=== PATIENT | male | born 1990 | race Caucasian/White ===

== ENCOUNTER 2021-11-16 08:56 | Emergency (ER) | payer OTHER ==
[2021-11-16] MEDS ORDERED: ONDANSETRON ODT 4 MG TAB PO STA (09:17)
[2021-11-16] MEDS ORDERED: IBUPROFEN 600 MG TAB PO STA (10:09)
--- NOTE | 2021-11-16 10:20 | ED ---
General Adult HPI - General Chief complaint: Nausea/Vomiting/Diarrhea Stated complaint: nausea Time Seen by Provider: 11/16/21 09:00 Source: patient Mode of arrival: ambulatory Limitations: no limitations - History of Present Illness Initial comments: 31-year-old previously healthy male presents to emergency room with reported nausea since Tuesday. Denies any sick contacts with similar symptoms. No exposure to tainted foods. Reports that he is able to eat and drink however with ambulation he feels nauseated. No associated vomiting. Denies abdominal pain. Admits to chills without recorded fevers. Patient is not vaccinated against Covid. Admits nasal congestion with nonproductive cough. No chest pain. No shortness of breath. Denies diarrhea or issues with his urination. Admits that he had similar symptoms last year and was hospitalized at [facility] for 2 days. He had EGD and colonoscopy performed. States he was on Bentyl for a period of time and this medication improved his symptoms. He denies any pertinent findings with his hospitalization. No other alleviating, precipitating or modifying factors - Related Data Previous Rx's Medication Instructions Recorded Ondansetron Odt [Zofran Odt] 4 mg PO Q8HR PRN #20 tab 11/16/21 Allergies Allergy/AdvReac Type Severity Reaction Status Date / Time No Known Allergies Allergy Verified 11/16/21 09:33 Review of Systems ROS Statement: Those systems with pertinent positive or pertinent negative responses have been documented in the HPI. ROS Other: All systems not noted in ROS Statement are negative. Past Medical History Past Medical History: No Reported History History of Any Multi-Drug Resistant Organisms: None Reported Past Surgical History: No Surgical Hx Reported Smoking Status: Never smoker Past Alcohol Use History: Occasional Past Drug Use History: None Reported General Exam Limitations: no limitations General appearance: alert, in no apparent distress, other (fatigued) Head exam: Present: atraumatic, normocephalic, normal inspection Eye exam: Present: normal appearance, PERRL, EOMI. Absent: scleral icterus, conjunctival injection, periorbital swelling ENT exam: Present: normal exam, mucous membranes moist Neck exam: Present: normal inspection. Absent: tenderness, meningismus, lymphadenopathy Respiratory exam: Present: normal lung sounds bilaterally. Absent: respiratory distress, wheezes, rales, rhonchi, stridor Cardiovascular Exam: Present: regular rate, normal rhythm, normal heart sounds. Absent: systolic murmur, diastolic murmur, rubs, gallop, clicks GI/Abdominal exam: Present: soft, normal bowel sounds. Absent: distended, tenderness, guarding, rebound, rigid Extremities exam: Present: normal inspection, full ROM, normal capillary refill. Absent: tenderness, pedal edema, joint swelling, calf tenderness Back exam: Present: normal inspection Neurological exam: Present: alert, oriented X3, CN II-XII intact Psychiatric exam: Present: normal affect, normal mood Skin exam: Present: warm, intact, diaphoretic. Absent: rash Course Vital Signs 11/16/21 08:58 Temperature 98 F Pulse Rate 89 Respiratory 20 Rate Blood Pressure 135/93 O2 Sat by Pulse 20 L Oximetry Medical Decision Making - Medical Decision Making Upon arrival patient was placed into room 2. Thorough history and physical exam is performed. I did recommend IV establishment with fluid hydration and laboratory studies however patient refused. He is made aware of the risks of not performing laboratory studies for which she is understanding but continues to refuse. I did recommend Covid and flu swabs for which the patient is agreeable to. He is given oral Zofran for his nausea. Abdomen is nontender. Covid does return and is positive. Discuss the diagnosis with the patient. He is able to drink fluids and hold them down. Reports improvement in his nausea. Informed him that he must quarantine for at least 5 days. Follow-up with his primary care doctor. Take the Zofran as needed every 8 hours for nausea. Take Motrin and Tylenol alternating for pain and fever and return for any new or worsening symptoms. Patient agreeable to plan and was discharged home in stable condition - Lab Data Lab Results 11/16/21 11/16/21 Range/Units 09:27 09:27 Coronavirus (PCR) Detected A (Not Detectd) Influenza Type A RNA Not Detected (Not Detectd) Influenza Type B (PCR) Not Detected (Not Detectd) Disposition Clinical Impression: Nausea, COVID-19 Disposition: HOME SELF-CARE Condition: Stable Instructions (If sedation given, give patient instructions): COVID-19 (Coronavirus Disease 2019) (ED) Additional Instructions: Please take Motrin alternating with Tylenol for pain and fever every 4 hours. Take the Zofran as needed for nausea. Quarantine for at least 5 days. Return to the emergency room for any new or worsening symptoms Prescriptions: Ondansetron Odt [Zofran Odt] 4 mg PO Q8HR PRN #20 tab PRN Reason: Nausea Is patient prescribed a controlled substance at d/c from ED?: No Referrals: Maricel Cole DO [Primary Care Provider] - 1-2 days Time of Disposition: 10:20
[2021-11-16 10:34] VITALS: BP 124/86; PULSE 63; RESP 18; TEMP 98
== END 2021-11-16 10:30 | disposition home or self-care (01) ==
LOC: EC 08:56
DX: U07.1 COVID-19 (principal); Z72.89 Other problems related to lifestyle
CPT/HCPCS: 87502; 87635; 99283

== ENCOUNTER 2022-01-29 15:55 | Inpatient (IN) | payer OTHER ==
[2022-01-29 17:19] LABS: Appearance,Urine Clear (Clear); Bilirubin,Urine Negative (Negative); Blood,Urine Negative (Negative); Color,Urine Yellow; Glucose,Urine (UA) Negative (Negative); Ketones,Urine Negative (Negative); Leukocyte Esterase,Urine Negative (Negative); Nitrite,Urine Negative (Negative); PH, Urine 5.5 (5.0-8.0); Protein,Urine Negative (Negative); Specific Gravity,Urine 1.009 (1.001-1.035)
[2022-01-29 17:28] LABS: Amphetamine Screen,Urine Not Detected (NotDetected); Barbiturate Screen,Urine Not Detected (NotDetected); Benzodiazepines Screen,Urine Not Detected (NotDetected); Cocaine Screen,Urine Not Detected (NotDetected); Methadone Screen, Urine Not Detected (NotDetected); Opiate Screen,Urine Not Detected (NotDetected); Oxycodone Screen, Urine Not Detected (NotDetected); Phencyclidine Screen,Urine Not Detected (NotDetected); Tricyclic Antidepressant,Urine Not Detected (NotDetected); Urn Cannabinoid Scrn Not Detected (NotDetected)
[2022-01-29 17:36] LABS: Basophils % (A) 0 %; Eosinophils # (A) 0.1 k/uL (0-0.7); Eosinophils % (A) 2 %; HCT 42.3 % (39.0-53.0); HGB 15.1 gm/dL (13.0-17.5); Lymphocytes # (A) 1.1 k/uL (1.0-4.8); Lymphocytes % (A) 19 %; MCH 32.1 pg (25.0-35.0); MCHC 35.8 g/dL (31.0-37.0); MCV 89.8 fL (80.0-100.0); Monocytes # (A) 0.3 k/uL (0-1.0); Monocytes % (A) 5 %; Neutrophils # (A) 4.3 k/uL (1.3-7.7); Neutrophils % (A) 73 %; RBC 4.71 m/uL (4.30-5.90); RDW 11.9 % (11.5-15.5)
[2022-01-29 17:48] LABS: ALT 591 U/L (4-49); AST 432 U/L (17-59); African American GFR (CKD) >90 (>60 ml/min/1.73 sqM); Albumin 5.5 g/dL (3.5-5.0); Alkaline Phosphatase 102 U/L (38-126); Anion Gap 22 mmol/L; Blood Urea Nitrogen 8 mg/dL (9-20); Calcium 9.8 mg/dL (8.4-10.2); Carbon Dioxide 19 mmol/L (22-30); Chloride 98 mmol/L (98-107); Glucose 102 mg/dL (74-99); Lipase 171 U/L (23-300); Non-African American GFR(CKD) >90 (>60 ml/min/1.73 sqM); Potassium 3.1 mmol/L (3.5-5.1); Sodium 139 mmol/L (137-145); Total Bilirubin 1.7 mg/dL (0.2-1.3); Total Protein 8.4 g/dL (6.3-8.2)
[2022-01-29] MEDS ORDERED: LORazepam 2 MG/ML INJ IV STA (18:17)
[2022-01-29 18:18] LABS: Platelet Count 79 k/uL (150-450); RBC Morphology Normal
[2022-01-29] MEDS ORDERED: POTASSIUM CHLORIDE ER 20 MEQ TAB.ER PO STA (19:27)
--- NOTE | 2022-01-29 19:45 | CT ---
EXAMINATION TYPE: CT abdomen pelvis wo con DATE OF EXAM: 01/29/2022 COMPARISON: HISTORY: abdominal pain, dark stools CT DLP: 353.3 mGycm Automated exposure control for dose reduction was used. Images obtained from the diaphragm to the floor the pelvis with no contrast. Lung bases are clear. No pleural effusion. Heart size is normal. No pericardial effusion. There is fatty infiltration of the liver. No focal liver defect. Gallbladder is large and measures 4. 3 cm. The bowel is nondilated. Spleen and stomach pancreas appear intact. There is no adrenal mass. Kidneys show satisfactory contrast opacification. No hydronephrosis. Ureter s are not dilated. No retroperitoneal adenopathy. The bladder distends smoothly. No free fluid in the pelvis. No pelvic mass. There is no mesenteric edema. No ascites or free air. No sign of a bowel obstruction. Appendix not cl early seen. No sign of thickened appendix. The lumbar vertebrae have normal alignment. Disc spaces are normal. Posterior elements are intact and no compression fracture. The bony pelvis is intact. IMPRESSION: Fatty infiltration of the liver. No dilated ducts. Appendix not seen.
[2022-01-29] MEDS ORDERED: NALOXONE 0.4 MG/ML 1 ML VIAL IV PRN (20:22)
--- NOTE | 2022-01-29 20:22 | ED ---
Psych HPI - General Chief Complaint: Psychiatric Symptoms Stated Complaint: ABD pain Time Seen by Provider: 01/29/22 16:15 Source: patient Mode of arrival: ambulatory - History of Present Illness Initial Comments: 31-year-old male is brought in for mental health evaluation. He was petitioned by his fiance who states that he has been acting abnormally. States that he is hallucinating and paranoid. Upon interacting with the patient. He denies any suicidal or homicidal thoughts. Reports that he has been suffering from lower abdominal pain the past several weeks. He was seen at a hospital in the [place] and states that he had an ultrasound performed which was negative. He followed up with Dr. Cole and had a repeat laboratory studies performed which were within normal limits. States he continues to have lower abdominal pain and dark urine. Patient is visibly intoxicated. Admits to drinking a pint of vodka today because of the pain. States he normally drinks 1-2 beers daily. Denies bloody stools but admits that they are dark in nature. No history of ulcers. No other alleviating, precipitating or modifying factors - Related Data Home Medications Medication Instructions Recorded Confirmed No Known Home Medications 01/29/22 01/29/22 Allergies Allergy/AdvReac Type Severity Reaction Status Date / Time No Known Allergies Allergy Verified 01/29/22 18:07 Review of Systems ROS Statement: Those systems with pertinent positive or pertinent negative responses have been documented in the HPI. ROS Other: All systems not noted in ROS Statement are negative. Past Medical History Past Medical History: No Reported History History of Any Multi-Drug Resistant Organisms: None Reported Past Surgical History: No Surgical Hx Reported Past Psychological History: No Psychological Hx Reported Smoking Status: Never smoker Past Alcohol Use History: Occasional Past Drug Use History: None Reported General Exam Limitations: altered mental status General appearance: appears intoxicated, anxious Head exam: Present: atraumatic, normocephalic, normal inspection Eye exam: Present: normal appearance, PERRL, EOMI. Absent: scleral icterus, conjunctival injection, periorbital swelling ENT exam: Present: normal exam, mucous membranes moist Respiratory exam: Present: normal lung sounds bilaterally. Absent: respiratory distress, wheezes, rales, rhonchi, stridor Cardiovascular Exam: Present: normal rhythm, tachycardia GI/Abdominal exam: Present: tenderness (suprapubic) Neurological exam: Present: altered Psychiatric exam: Present: agitated Skin exam: Present: warm, dry, intact, normal color. Absent: rash Course Vital Signs 01/29/22 01/29/22 01/29/22 16:12 17:30 20:30 Temperature 98.6 F Pulse Rate 102 H 94 92 Respiratory 20 20 20 Rate Blood Pressure 133/88 128/80 O2 Sat by Pulse 99 98 98 Oximetry 01/29/22 01/29/22 21:30 23:40 Temperature 98.2 F Pulse Rate 92 Respiratory 20 20 Rate Blood Pressure 130/78 O2 Sat by Pulse 98 99 Oximetry Medical Decision Making - Medical Decision Making Upon arrival patient is placed in room 13. Thorough history and physical exam was performed. Patient is aggressive with staff and therefore IV is established and the patient is given 2 mg of Ativan. Laboratory studies are conducted. Potassium low at 3.1. AST and ALT is elevated. Patient sent for CT of his abdomen and pelvis which demonstrates heterogeneous appearance of the liver. Pt has no epigastric pain. Patient is intoxicated with an alcohol level of 206. Because of his alcohol intoxication and liver failure he will be admitted to medicine and then psychiatrically evaluated once cleared as he does have a petition on the chart. Spoke with Josie from [facility] who agreed to admit the patient. - Lab Data Result diagrams: 01/29/22 17:23 01/29/22 17:23 Lab Results 01/29/22 01/29/22 01/29/22 Range/Units 17:05 17:08 17:23 WBC 6.0 (3.8-10.6) k/uL RBC 4.71 (4.30-5.90) m/uL Hgb 15.1 (13.0-17.5) gm/dL Hct 42.3 (39.0-53.0) % MCV 89.8 (80.0-100.0) fL MCH 32.1 (25.0-35.0) pg MCHC 35.8 (31.0-37.0) g/dL RDW 11.9 (11.5-15.5) % Plt Count 79 L (150-450) k/uL MPV 9.0 Neutrophils % 73 % Lymphocytes % 19 % Monocytes % 5 % Eosinophils % 2 % Basophils % 0 % Neutrophils # 4.3 (1.3-7.7) k/uL Lymphocytes # 1.1 (1.0-4.8) k/uL Monocytes # 0.3 (0-1.0) k/uL Eosinophils # 0.1 (0-0.7) k/uL Basophils # 0.0 (0-0.2) k/uL Manual Slide Review Performed RBC Morphology Normal Sodium (137-145) mmol/L Potassium (3.5-5.1) mmol/L Chloride (98-107) mmol/L Carbon Dioxide (22-30) mmol/L Anion Gap mmol/L BUN (9-20) mg/dL Creatinine (0.66-1.25) mg/dL Est GFR (CKD-EPI)AfAm (>60 ml/min/1.73 sqM) Est GFR (CKD-EPI)NonAf (>60 ml/min/1.73 sqM) Glucose (74-99) mg/dL Calcium (8.4-10.2) mg/dL Total Bilirubin (0.2-1.3) mg/dL AST (17-59) U/L ALT (4-49) U/L Alkaline Phosphatase (38-126) U/L Total Protein (6.3-8.2) g/dL Albumin (3.5-5.0) g/dL Lipase (23-300) U/L Urine Color Yellow Urine Appearance Clear (Clear) Urine pH 5.5 (5.0-8.0) Ur Specific [place] 1.009 (1.001-1.035) Urine Protein Negative (Negative) Urine Glucose (UA) Negative (Negative) Urine Ketones Negative (Negative) Urine Blood Negative (Negative) Urine Nitrite Negative (Negative) Urine Bilirubin Negative (Negative) Urine Urobilinogen 2.0 (<2.0) mg/dL Ur Leukocyte Esterase Negative (Negative) Urine Opiates Screen Not Detected (NotDetected) Ur Oxycodone Screen Not Detected (NotDetected) Urine Methadone Screen Not Detected (NotDetected) Ur Propoxyphene Screen Not Detected (NotDetected) Ur Barbiturates Screen Not Detected (NotDetected) U Tricyclic Antidepress Not Detected (NotDetected) Ur Phencyclidine Scrn Not Detected (NotDetected) Ur Amphetamines Screen Not Detected (NotDetected) U Methamphetamines Scrn Not Detected (NotDetected) U Benzodiazepines Scrn Not Detected (NotDetected) Urine Cocaine Screen Not Detected (NotDetected) U Marijuana (THC) Screen Not Detected (NotDetected) 01/29/22 Range/Units 17:23 WBC (3.8-10.6) k/uL RBC (4.30-5.90) m/uL Hgb (13.0-17.5) gm/dL Hct (39.0-53.0) % MCV (80.0-100.0) fL MCH (25.0-35.0) pg MCHC (31.0-37.0) g/dL RDW (11.5-15.5) % Plt Count (150-450) k/uL MPV Neutrophils % % Lymphocytes % % Monocytes % % Eosinophils % % Basophils % % Neutrophils # (1.3-7.7) k/uL Lymphocytes # (1.0-4.8) k/uL Monocytes # (0-1.0) k/uL Eosinophils # (0-0.7) k/uL Basophils # (0-0.2) k/uL Manual Slide Review RBC Morphology Sodium 139 (137-145) mmol/L Potassium 3.1 L (3.5-5.1) mmol/L Chloride 98 (98-107) mmol/L Carbon Dioxide 19 L (22-30) mmol/L Anion Gap 22 mmol/L BUN 8 L (9-20) mg/dL Creatinine 0.76 (0.66-1.25) mg/dL Est GFR (CKD-EPI)AfAm >90 (>60 ml/min/1.73 sqM) Est GFR (CKD-EPI)NonAf >90 (>60 ml/min/1.73 sqM) Glucose 102 H (74-99) mg/dL Calcium 9.8 (8.4-10.2) mg/dL Total Bilirubin 1.7 H (0.2-1.3) mg/dL AST 432 H (17-59) U/L ALT 591 H (4-49) U/L Alkaline Phosphatase 102 (38-126) U/L Total Protein 8.4 H (6.3-8.2) g/dL Albumin 5.5 H (3.5-5.0) g/dL Lipase 171 (23-300) U/L Urine Color Urine Appearance (Clear) Urine pH (5.0-8.0) Ur Specific [place] (1.001-1.035) Urine Protein (Negative) Urine Glucose (UA) (Negative) Urine Ketones (Negative) Urine Blood (Negative) Urine Nitrite (Negative) Urine Bilirubin (Negative) Urine Urobilinogen (<2.0) mg/dL Ur Leukocyte Esterase (Negative) Urine Opiates Screen (NotDetected) Ur Oxycodone Screen (NotDetected) Urine Methadone Screen (NotDetected) Ur Propoxyphene Screen (NotDetected) Ur Barbiturates Screen (NotDetected) U Tricyclic Antidepress (NotDetected) Ur Phencyclidine Scrn (NotDetected) Ur Amphetamines Screen (NotDetected) U Methamphetamines Scrn (NotDetected) U Benzodiazepines Scrn (NotDetected) Urine Cocaine Screen (NotDetected) U Marijuana (THC) Screen (NotDetected) Disposition Clinical Impression: Acute psychosis, Alcohol intoxication, Transaminitis Disposition: ADMITTED IP TO THIS [facility] Condition: Stable Is patient prescribed a controlled substance at d/c from ED?: No Time of Disposition: 20:22 Decision to Admit Reason: Admit from EC Decision Date: 01/29/22 Decision Time: 20:22
[2022-01-29] MEDS ORDERED: LORazepam 0.5 MG TAB PO PRN (20:26)
[2022-01-29] MEDS ORDERED: THIAMINE 100 MG/ML 2 ML VIAL IM STA (20:26)
[2022-01-29] MEDS ORDERED: LORazepam 1 MG TAB PO PRN ×3 (20:26)
[2022-01-29] MEDS: SODIUM CHLORIDE 0.9% 1,000 ML IV SCH (21:09)
[2022-01-30] MEDS: THIAMINE 100 MG TAB PO SCH (09:12)
[2022-01-30 13:01] LABS: Albumin 4.5 g/dL (3.8-4.9); Albumin/Globulin Ratio 2.14 (1.60-3.17); Anion Gap 10.4 mmol/L (10.00-18.00); BUN/Creat Ratio 13.13 Ratio (12.00-20.00); Blood Urea Nitrogen 10.5 mg/dL (9.0-27.0); Calcium 9.1 mg/dL (8.7-10.3); Carbon Dioxide 26.6 mmol/L (20.0-27.5); Globulin 2.1 g/dL (1.6-3.3); Non-African American GFR(CKD) 118.2 (60.0-200.0); Potassium 3.8 mmol/L (3.5-5.5); Total Bilirubin 1.7 mg/dL (0.30-1.20); Total Protein 6.6 g/dL (6.2-8.2)
[2022-01-30 13:36] LABS: Basophils # (A) 0.02 X 10*3/uL (0.00-0.10); Basophils % (A) 0.4 %; Eosinophils # (A) 0.17 X 10*3/uL (0.04-0.35); Eosinophils % (A) 3.1 %; HCT 37.4 % (39.6-50.0); HGB 12.9 g/dL (13.0-17.0); Immature Grans, Automated 0.4 %; Immature Platelet Fraction 9.5 % (1.1-6.1); Lymphocytes # (A) 1.51 X 10*3/uL (0.90-5.00); Lymphocytes % (A) 27.2 %; MCH 31.2 pg (27.0-32.0); MCHC 34.5 g/dL (32.0-37.0); MCV 90.6 fL (80.0-97.0); Mean Platelet Volume 11.4 fL (9.5-12.2); Monocytes # (A) 0.47 X 10*3/uL (0.20-1.00); Monocytes % (A) 8.5 %; NRBC Per 100 WBC 0 /100 WBCS (0.0-0.0); Neutrophils # (A) 3.36 X 10*3/uL (1.80-7.70); Neutrophils % (A) 60.4 %; Platelet Count 69 X 10*3/uL (140-440); RBC 4.13 X 10*6/uL (4.40-5.60); RDW 11.9 % (11.5-14.5); WBC 5.55 X 10*3/uL (4.50-10.00)
--- NOTE | 2022-01-30 14:48 | P.CN ---
Psychiatric Consult - . Consult date: 01/30/22 Consult:: IDENTIFYING DATA: This patient is a 31-year old engaged male with history of depression and alcohol use disorder. REASON FOR REFERRAL: Psychiatry was consulted for "petition" HISTORY OF PRESENT ILLNESS: The patient presented to the hospital for a mental health evaluation by his fiancee who petitioned him, and was subsequently admission to the medical unit due to abdominal pain and transaminitis. I evaluated patient today and found him calmly laying in bed cuddling his fiance with a sitter at bedside. The fiancee voluntarily left the room during the evaluation. He admits he has felt depressed since his mother 4 years ago and started drinking after her . He reports he started drinking 2-3 beers per night, then switched to vodka which he would consume about half a pint per night. He states he "quit" about one week ago, experienced withdrawal symptoms including shaking, sweating, and was hearing voices (which he had not experienced before), and denies any seizures. He started drinking again the ni ght before admission, got into verbal arguments with his finacee, that lead to his presentation to the hospital. His BAL was .206 at 16:18 on 01/29/22. He is clinically sober currently. At this time, patient denies any suicidal or homical ideations, intent or plan. He denies any auditory or visual hallucinations currently. No paranoia or delusions currently. He admits to poor sleep, low interest, low energy, fair concentration, low appetite. He declines inpatient substance abuse treatment but is interested in outpatient substance abuse treatment. He is also agreeable to starting an antidepressant and linking with [facility] for mental health treatment. He states he wants to discontinue alcohol use. He denies other illicit drug or tobacco use. PAST PSYCHIATRIC HISTORY: Patient has a a history of depression and alcohol abuse. Patient denies being on any psychiatric medications. Patient denies any previous psychiatric hospitalizations. Patient denies any psychiatric outpatient follow-up. Patient denies any history of suicide attempts in the past. PAST MEDICAL HISTORY: Elevated transaminase on admission ALLERGIES: as per EMR. CHEMICAL DEPENDENCY HISTORY: as per HPI. FAMILY PSYCHIATRIC/SUBSTANCE USE HISTORY: denies SOCIAL HISTORY: Mother 4 years ago. Engaged MENTAL STATUS EXAM: General Appearance: Patient appears to be stated age, slender male with fair hygiene dressed in hospital gown, with good eye contact. Behavior: Patient is calmly lying in bed without any agitated behavior. Speech: Patient's speech is fluent and non-pressured. Mood/Affect: Patient reports their mood is "[depressed]", affect is congruent Suicidality/Homicidality: Patient denies having any suicidal or homicidal ideation intent or plan. Perceptions: Patient denies any visual hallucinations and denies any auditory hallucinations Though content/process: There is no evidence of any delusional thought content and thought process is linear and goal-directed. Memory and concentration: AOX3, grossly intact for the purposes of this session. Can spell "WORLD" backwards Judgment and insight: Fair IMPRESSIONS: Major depressive disorder, single episode, severe without psychotic features Delirium, secondary to alcohol withdrawal - resolving Alcohol use disorder with withdrawal PLAN: -At this time patient DOES NOT meet criteria for inpatient psychiatric admission. -Delirium precautions recommended with patient including - avoiding use of narcotics and [employer] sedatives, limit anticholinergic medications when possible, frequent re-orientation, minimize use of restraints, open window shades during the day and close them at night -Would recommend the following medication changes/additions: Start Zoloft 25 mg daily x 1, and increase to 50 mg daily starting tomorrow for depression. -CIWA protocol with PRN Ativan for alcohol withdrawal. Continue to monitor vital signs. -Can discontinue 1:1 sitter at this time as patient is not currently an imminent threat to themselves. Continue to reassess safety and reinstate sitter if safety concerns arise. -icebox worker to provide patient with outpatient mental health/psychiatry resources for appropriate follow up upon discharge, ie information for [facility] so he can make an appointment. -Nurse Leader spoke with patient about substance abuse and the harmful effects on medical and mental health, patient verbally understood and agreed. -icebox worker to provide patient substance use treatment resources including AA/NA meetings in the community. -icebox worker to provide patient with access line number to call for inpatient substance rehab in the event he changes his mind and is willing to do inpatient treatment. -Communicated plan to patient's nurse -Will continue to follow along -Please contact with any questions. 01/30/22 13:05 01/30/22 13:05 01/30/22 14:33
[2022-01-30] MEDS ORDERED: SERTRALINE 25 MG TAB PO ONE (15:00)
[2022-01-30] MEDS: HEPARIN SODIUM,PORCINE/PF 5,000 UNIT/0.5 ML SYRINGE SQ SCH ×2 (15:20→20:02)
[2022-01-30] MEDS: PANTOPRAZOLE 40 MG TABLET PO SCH (15:23)
[2022-01-30] MEDS ORDERED: IBUPROFEN 400 MG TAB PO STA (20:22)
[2022-01-30] MEDS: SODIUM CHLORIDE 0.9% 1,000 ML IV SCH ×2 (21:00→21:01)
[2022-01-31] MEDS: SODIUM CHLORIDE 0.9% 1,000 ML IV SCH (04:28)
[2022-01-31 07:55] VITALS: BP 128/85; PULSE 61; RESP 16; TEMP 97.8
[2022-01-31] MEDS ORDERED: SERTRALINE 50 MG TAB PO SCH (09:00)
[2022-01-31] MEDS: HEPARIN SODIUM,PORCINE/PF 5,000 UNIT/0.5 ML SYRINGE SQ SCH (09:10)
[2022-01-31] MEDS: THIAMINE 100 MG TAB PO SCH (09:26)
[2022-01-31] MEDS: PANTOPRAZOLE 40 MG TABLET PO SCH (09:27)
[2022-01-31 11:45] LABS: Basophils # (A) 0.02 X 10*3/uL (0.00-0.10); Basophils % (A) 0.4 %; Eosinophils # (A) 0.15 X 10*3/uL (0.04-0.35); HCT 32.2 % (39.6-50.0); HGB 11.1 g/dL (13.0-17.0); Immature Grans, Automated 0.2 %; Immature Platelet Fraction 7.9 % (1.1-6.1); Lymphocytes % (A) 28.4 %; MCH 31.7 pg (27.0-32.0); MCHC 34.5 g/dL (32.0-37.0); Monocytes # (A) 0.41 X 10*3/uL (0.20-1.00); Monocytes % (A) 8.3 %; NRBC Per 100 WBC 0 /100 WBCS (0.0-0.0); Neutrophils # (A) 2.94 X 10*3/uL (1.80-7.70); Neutrophils % (A) 59.7 %; Platelet Count 62 X 10*3/uL (140-440); RDW 11.8 % (11.5-14.5); WBC 4.93 X 10*3/uL (4.50-10.00)
[2022-01-31 11:56] LABS: African American GFR (CKD) 144.7 (60.0-200.0); Albumin/Globulin Ratio 2.35 (1.60-3.17); Anion Gap 8.4 mmol/L (10.00-18.00); BUN/Creat Ratio 15.29 Ratio (12.00-20.00); Blood Urea Nitrogen 10.7 mg/dL (9.0-27.0); Calcium 8.9 mg/dL (8.7-10.3); Carbon Dioxide 24.6 mmol/L (20.0-27.5); Globulin 1.7 g/dL (1.6-3.3); Non-African American GFR(CKD) 124.9 (60.0-200.0); Potassium 3.6 mmol/L (3.5-5.5); Total Protein 5.7 g/dL (6.2-8.2)
[2022-01-31] MEDS ORDERED: FOLIC ACID 1 MG TAB PO SCH (12:00)
[2022-01-31] MEDS ORDERED: MULTIVITAMINS, THERA 1 EACH TAB PO SCH (12:00)
== END 2022-01-31 13:28 | disposition home or self-care (01) | DRG 885 ==
LOC: EC 15:55 → 4SSUR 20:23
PROVIDERS: ADMIT Hospitalist; ATTEND Hospitalist
DX: F23 Brief psychotic disorder (principal); F10.129 Alcohol abuse with intoxication, unspecified; K72.90 Hepatic failure, unspecified without coma; Y90.7 Blood alcohol level of 200-239 mg/100 ml; Z71.41 Alcohol abuse counseling and surveillance of alcoholic
CPT/HCPCS: 36415; 74176; 80053; 80306; 80320; 81003; 82075; 83690; 83735; 85025; 96361; 96374; 99285

== ENCOUNTER 2022-12-26 23:47 | Emergency (ER) | payer OTHER ==
[2022-12-27 00:24] VITALS: TEMP 98
[2022-12-27] MEDS ORDERED: HYDROmorphone 1 MG/ML 1 ML SYRINGE IM STA (00:30)
--- NOTE | 2022-12-27 02:23 | XR ---
EXAM: XR Right Femur, 2 Views CLINICAL HISTORY: XR Reason: fall TECHNIQUE: Frontal and lateral views of the right femur. COMPARISON: No relevant prior studies available. FINDINGS: Bones/joints: Fullness in the suprapatellar region consistent with moderate joint effusion. The osseous structures are intact and normally aligned. No acute fracture or dislocation is identified. Soft tissues: Unremarkable. IMPRESSION: 1. Fullness in the suprapatellar region consistent with moderate joint effusion. 2. The osseous structures are intact and normally aligned. No acute fracture or dislocation is identified.
--- NOTE | 2022-12-27 02:24 | XR ---
EXAM: XR Right Knee, 3 Views CLINICAL HISTORY: XR Reason: fall TECHNIQUE: Three views of the right knee. COMPARISON: No relevant prior studies available. FINDINGS: Bones/joints: Fullness in the suprapatellar region consistent with a knee joint effusion. No acute fracture or dislocation is seen. Soft tissues: Unremarkable. IMPRESSION: Fullness in the suprapatellar region consistent with a knee joint effusion. No acute fracture or dislocation is seen.
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
[2022-12-27 03:34] VITALS: BP 118/73; PULSE 58; RESP 16
== END 2022-12-27 03:33 | disposition home or self-care (01) ==
LOC: EC 23:47
DX: M25.461 Effusion, right knee (principal); Z88.5 Allergy status to narcotic agent; Z88.6 Allergy status to analgesic agent; X50.1XXA Overexertion from prolonged static or awkward postures, initial encounter; Y93.55 Activity, bike riding
CPT/HCPCS: 73552; 73562; 99283; 96372; L1830; J1170

== ENCOUNTER 2023-05-24 22:37 | Emergency (ER) | payer OTHER ==
[2023-05-24] MEDS: FLUORESCEIN STRIPS 1 MG STRIP LEFT EYE ONE (22:53)
[2023-05-24] MEDS: PROPARACAINE 0.5% OPHTH DROPS 15 ML BTL LEFT EYE STA (22:53)
[2023-05-24 23:07] VITALS: RESP 18
--- NOTE | 2023-05-24 23:16 | ED ---
General Adult HPI <Zeb Nunn - Last Filed: 05/24/23 23:48> - General Source: patient, RN notes reviewed Mode of arrival: ambulatory Limitations: no limitations <Darlyn Orta - Last Filed: 05/30/23 11:53> - General Chief complaint: Eye Problems Stated complaint: eye problem Time Seen by Provider: 05/24/23 22:48 - History of Present Illness Initial comments: 33-year-old male presented to the emergency department for evaluation of left eye irritation. He states that he believes he got something in his eye. He states the pain started 2 days ago. He was recently working on his vehicle and hammering metal. He is not sure if he got something in his eye at that time. He denies any changes in his vision, pain with eye movements, periorbital swelling. Denies fever, chills. He is not up-to-date on his tetanus vaccination. (Darlyn Orta) - Related Data Previous Rx's Medication Instructions Recorded Folic Acid 1 mg PO DAILY@1200 #30 tab 01/31/22 Multivitamins, Thera [Multivitamin 1 each PO DAILY@1200 #30 tab 01/31/22 (formulary)] Pantoprazole [Protonix] 40 mg PO AC-BRKFST #30 tab 01/31/22 Sertraline [Zoloft] 50 mg PO DAILY #30 tab 01/31/22 Thiamine [Vitamin B-1] 100 mg PO DAILY #30 tab 01/31/22 Allergies Allergy/AdvReac Type Severity Reaction Status Date / Time acetaminophen [From Vicodin] AdvReac Hallucinati Verified 12/27/22 00:21 ons hydrocodone [From Vicodin] AdvReac Hallucinati Verified 12/27/22 00:21 ons Review of Systems ROS Other: All systems not noted in ROS Statement are negative. <Zeb Nunn - Last Filed: 05/24/23 23:48> ROS Other: All systems not noted in ROS Statement are negative. <Darlyn Orta - Last Filed: 05/30/23 11:53> ROS Statement: Those systems with pertinent positive or pertinent negative responses have been documented in the HPI. Past Medical History Past Medical History: No Reported History History of Any Multi-Drug Resistant Organisms: None Reported Past Surgical History: No Surgical Hx Reported Past Psychological History: No Psychological Hx Reported Smoking Status: Never smoker Past Alcohol Use History: Occasional Past Drug Use History: None Reported <Darlyn Orta - Last Filed: 05/30/23 11:53> General Exam Limitations: no limitations General appearance: alert, in no apparent distress Head exam: Present: atraumatic, normocephalic, normal inspection Eye exam: Present: PERRL, EOMI, conjunctival injection, other (Visible corneal foreign body of the left eye with Burgess lamp examination) ENT exam: Present: normal exam, mucous membranes moist Respiratory exam: Present: normal lung sounds bilaterally. Absent: respiratory distress, wheezes, rales, rhonchi, stridor Cardiovascular Exam: Present: regular rate, normal rhythm, normal heart sounds. Absent: systolic murmur, diastolic murmur, rubs, gallop, clicks Neurological exam: Present: alert, oriented X3 Psychiatric exam: Present: normal affect, normal mood Skin exam: Present: warm, dry, intact, normal color. Absent: rash <Darlyn Orta - Last Filed: 05/30/23 11:53> Course Vital Signs 05/24/23 05/25/23 22:40 00:44 Temperature 98.1 F 98.2 F Pulse Rate 56 L 62 Respiratory 18 18 Rate Blood Pressure 131/87 128/80 O2 Sat by Pulse 99 97 Oximetry Procedures - Forgein Body Removal Eye Site: Left Anesthetic Used: Proparacaine Foreign Body Suspected: Metal Forgein Body Removal Technique: Cotton Swab, Needle Remaining Debris: Yes (small rust ring) Patient Tolerated: no complications <Zeb Nunn - Last Filed: 05/24/23 23:48> - Forgein Body Removal Eye Eye Exam Technique: Burgess Lamp, Fluorescein <Darlyn Orta - Last Filed: 05/30/23 11:53> Medical Decision Making <Darlyn Orta - Last Filed: 05/30/23 11:53> - Medical Decision Making Was pt. sent in by a medical professional or institution (, PA, RUN BOAT OPERATOR, urgent care, hospital, or detention...) When possible be specific @ -No Did you speak to anyone other than the patient for history (EMS, parent, family, police, friend...)? What history was obtained from this source @ -No Did you review nursing and triage notes (agree or disagree)? Why? @ -I reviewed and agree with nursing and triage notes Were old charts reviewed (outside hosp., previous admission, EMS record, old EKG, old radiological studies, urgent care reports/EKG's, detention records)? Report findings @ -No old charts were reviewed Differential Diagnosis (chest pain, altered mental status, abdominal pain women, abdominal pain men, vaginal bleeding, weakness, fever, dyspnea, syncope, headache, dizziness, GI bleed, back pain, seizure, CVA, palpatations, mental hea lth, musculoskeletal)? @ -Corneal foreign body, corneal abrasion, conjunctivitis, this list is not all inclusive EKG interpreted by me (3pts min.). @ -None X-rays interpreted by me (1pt min.). @ -None done CT interpreted by me (1pt min.). @ -None done U/S interpreted by me (1pt. min.). @ -None done What testing was considered but not performed or refused? (CT, X-rays, U/S, labs)? Why? @ -None What meds were considered but not given or refused? Why? @ -None Did you discuss the management of the patient with other professionals (professionals i.e. , PA, RUN BOAT OPERATOR, lab, RT, psych nurse, social work lecturer, network architect, teacher, procurement officer, case work aide)? Give summary @ -No Was smoking cessation discussed for >3mins.? @ -No Was critical care preformed (if so, how long)? @ -No Were there social determinants of health that impacted care today? How? (Homelessness, low income, unemployed, alcoholism, drug addiction, transportation, low edu. Level, literacy, decrease access to med. care, senior care, rehab)? @ -No Was there de-escalation of care discussed even if they declined (Discuss DNR or withdrawal of care, Hospice)? DNR status @ -No What co-morbidities impacted this encounter? (DM, HTN, Smoking, COPD, CAD, Cancer, CVA, ARF, Chemo, Hep., AIDS, mental health diagnosis, sleep apnea, morbid obesity)? @ -None Was patient admitted / discharged? Hospital course, mention meds given and route , prescriptions, significant lab abnormalities, going to OR and other pertinent info. @ -Discharge.patient presented to the emergency department for evaluation of left eye pain. This started 2 days ago. He is unsure if he got something in his eye. Visual acuity in the right eye 20/20, visual acuity and left 20/30. On Burgess lamp exam examination, there is a visible foreign body over the cornea of the left eye. Attempted removal with cotton swab. Attempted removal was preformed by Johnnie Dior PA-C with needle. Majority of the foreign body was able to be removed. Discussed with patient that there is still a small area of foreign body that appears to be in the eye. He will need to follow-up with ophthalmology. Provided patient with this information. Given antibiotic eyedrops and advised on use. Patient updated on tetanus vaccination. Patient understanding agreeable plan. Patient stable at time of discharge. Case discussed with Dr. Garcia. Undiagnosed new problem with uncertain prognosis? @ -No Drug Therapy requiring intensive monitoring for toxicity (Heparin, Nitro, Insulin, Cardizem)? @ -No Were any procedures done? @ -No Diagnosis/symptom? @ -Corneal foreign body Acute, or Chronic, or Acute on Chronic? @ -Acute Uncomplicated (without systemic symptoms) or Complicated (systemic symptoms)? @ -Uncomplicated Side effects of treatment? @ -No Exacerbation, Progression, or Severe Exacerbation? @ -No Poses a threat to life or bodily function? How? (Chest pain, [place], [place], pneumonia, PE, COPD, DKA, ARF, appy, cholecystitis, CVA, Diverticulitis, Homicidal, Suicida l, threat to staff... and all critical care pts) @ -No (Darlyn Orta) Disposition <Zeb Nunn - Last Filed: 05/24/23 23:48> Is patient prescribed a controlled substance at d/c from ED?: No <Darlyn Orta - Last Filed: 05/30/23 11:53> Clinical Impression: Corneal foreign body Disposition: HOME SELF-CARE Condition: Stable Instructions (If sedation given, give patient instructions): Eye Foreign Body (ED) Additional Instructions: Instill 2 eye drops every 6 hours for 7 days. Follow up with ophthalmology. Return to the emergency department for new or worsening symptoms. Referrals: Josie Pollock, PAC [REFERRING] - 1-2 days Dell Quevedo MD [STAFF PHYSICIAN] - 1-2 days
[2023-05-25] MEDS: DIPH,PERTUS(ACELL)TETVAC-LF 0.5 ML VIAL IM ONE (00:27)
[2023-05-25] MEDS: CIPROFLOXACIN 0.3% OPHTH SOLN 5 ML BTL LEFT EYE ONE (00:28)
[2023-05-25 01:20] VITALS: BP 128/80; PULSE 62; TEMP 98.2
== END 2023-05-25 00:44 | disposition home or self-care (01) ==
LOC: EC 22:37
DX: T15.02XA Foreign body in cornea, left eye, initial encounter (principal); Z88.5 Allergy status to narcotic agent
CPT/HCPCS: 65222; 90715; 99283

== ENCOUNTER 2023-07-16 11:52 | Emergency (ER) | payer OTHER ==
[2023-07-16 12:10] VITALS: BP 129/86; PULSE 64; RESP 16; TEMP 98.1
--- NOTE | 2023-07-16 12:23 | ED ---
Eye Problem HPI - General Chief complaint: Eye Problems Stated complaint: right eye infection Time Seen by Provider: 07/16/23 12:01 Source: patient, RN notes reviewed Mode of arrival: ambulatory Limitations: no limitations - History of Present Illness Initial comments: 33-year-old male presents emergency department chief complaint of right eye irritation. Patient states he has right upper eyelid swelling, discomfort. No visual disturbance denies any photophobia he states he may have been scratched by his dog as he states his dog sleeps by his face. Patient denies trauma or any known foreign body in his eye. Patient states there has been some crusting, drainage of his eye. - Related Data Previous Rx's Medication Instructions Recorded Folic Acid 1 mg PO DAILY@1200 #30 tab 01/31/22 Multivitamins, Thera [Multivitamin 1 each PO DAILY@1200 #30 tab 01/31/22 (formulary)] Pantoprazole [Protonix] 40 mg PO AC-BRKFST #30 tab 01/31/22 Sertraline [Zoloft] 50 mg PO DAILY #30 tab 01/31/22 Thiamine [Vitamin B-1] 100 mg PO DAILY #30 tab 01/31/22 Allergies Allergy/AdvReac Type Severity Reaction Status Date / Time acetaminophen [From Vicodin] AdvReac Hallucinati Verified 07/16/23 11:58 ons hydrocodone [From Vicodin] AdvReac Hallucinati Verified 07/16/23 11:58 ons Review of Systems ROS Statement: Those systems with pertinent positive or pertinent negative responses have been documented in the HPI. ROS Other: All systems not noted in ROS Statement are negative. Past Medical History Past Medical History: No Reported History History of Any Multi-Drug Resistant Organisms: None Reported Past Surgical History: No Surgical Hx Reported Past Psychological History: No Psychological Hx Reported Smoking Status: Never smoker Past Alcohol Use History: Occasional Past Drug Use History: None Reported General Exam Limitations: no limitations General appearance: alert, in no apparent distress Head exam: Present: atraumatic, normocephalic, normal inspection Eye exam: Present: PERRL, EOMI, periorbital swelling, periorbital tenderness. Absent: normal appearance (Right upper eyelid swelling, erythema there is a noted internal chalazion), scleral icterus, conjunctival injection Pupils: Present: other (Burgess lamp and fluorescein dye shows no uptake) ENT exam: Present: normal exam, normal oropharynx, mucous membranes moist Neck exam: Present: normal inspection. Absent: tenderness, meningismus, lymphadenopathy Respiratory exam: Present: normal lung sounds bilaterally. Absent: respiratory distress, wheezes, rales, rhonchi, stridor Cardiovascular Exam: Present: regular rate, normal rhythm, normal heart sounds. Absent: systolic murmur, diastolic murmur, rubs, gallop, clicks Course Vital Signs 07/16/23 11:57 Temperature 98.1 F Pulse Rate 64 Respiratory 16 Rate Blood Pressure 129/86 O2 Sat by Pulse 98 Oximetry Medical Decision Making - Medical Decision Making Was pt. sent in by a medical professional or institution (, GIOVANNA, DRAWBRIDGE TENDER, urgent care, hospital, or [facility]...) When possible be specific @ -No Did you speak to anyone other than the patient for history (EMS, parent, family, police, friend...)? What history was obtained from this source @ -No Did you review nursing and triage notes (agree or disagree)? Why? @ -I reviewed and agree with nursing and triage notes Were old charts reviewed (outside hosp., previous admission, EMS record, old EKG, old radiological studies, urgent care reports/EKG's, [facility] records)? Report findings @ -No old charts were reviewed Differential Diagnosis (chest pain, altered mental status, abdominal pain women, abdominal pain men, vaginal bleeding, weakness, fever, dyspnea, syncope, headache, dizziness, GI bleed, back pain, seizure, CVA, palpatations, mental health, musculoskeletal)? @ -Chalazion, external stye EKG interpreted by me (3pts min.). @ -None X-rays interpreted by me (1pt min.). @ -None done CT interpreted by me (1pt min.). @ -None done U/S interpreted by me (1pt. min.). @ -None done What testing was considered but not performed or refused? (CT, X-rays, U/S, labs)? Why? @ -None What meds were considered but not given or refused? Why? @ -None Did you discuss the management of the patient with other professionals (professionals i.e. GIOVANNA Justice, DRAWBRIDGE TENDER, lab, RT, psych nurse, marriage and family social worker, rabbit fancier, teacher, assurance officer, showcase maker)? Give summary @ -No Was smoking cessation discussed for >3mins.? @ -No Was critical care preformed (if so, how long)? @ -No Were there social determinants of health that impacted care today? How? (Homelessness, low income, unemployed, alcoholism, drug addiction, transportation, low edu. Level, literacy, decrease access to med. care, long-term, rehab)? @ -No Was there de-escalation of care discussed even if they declined (Discuss DNR or withdrawal of care, Hospice)? DNR status @ -No What co-morbidities impacted this encounter? (DM, HTN, Smoking, COPD, CAD, Cancer, CVA, ARF, Chemo, Hep., AIDS, mental health diagnosis, sleep apnea, morbid obesity)? @ -None Was patient admitted / discharged? Hospital course, mention meds given and route, prescriptions, significant lab abnormalities, going to OR and other pertinent info. @ -Discharge patient has a Chazalion will be started on Tobrex eyedrops, warm compresses and follow-up with ophthalmology Undiagnosed new problem with uncertain prognosis? @ -No Drug Therapy requiring intensive monitoring for toxicity (Heparin, Nitro, Insulin, Cardizem)? @ -No Were any procedures done? @ -No Diagnosis/symptom? @ -Chazalion Acute, or Chronic, or Acute on Chronic? @ -Acute Uncomplicated (without systemic symptoms) or Complicated (systemic symptoms)? @ -Uncomplicated Side effects of treatment? @ -No Exacerbation, Progression, or Severe Exacerbation? @ -No Poses a threat to life or bodily function? How? (Chest pain, [place], [place], pneumonia, PE, COPD, DKA, ARF, appy, cholecystitis, CVA, Diverticulitis, Homicidal, Suicidal, threat to staff... and all critical care pts) @ -No Disposition Clinical Impression: Chalazion right upper eyelid Disposition: HOME SELF-CARE Condition: Stable Instructions (If sedation given, give patient instructions): Michael (ED) Additional Instructions: Use Tobrex eyedrops 1 drop every 4 hours for next 7 days. Please return to the Emergency Department if symptoms worsen or any other concerns. Is patient prescribed a controlled substance at d/c from ED?: No Referrals: Maricel Cole DO [Primary Care Provider] - 1-2 days Time of Disposition: 12:23
[2023-07-16] MEDS: TOBRAMYCIN 0.3% OPHTH DROPS 5 ML BTL RIGHT EYE STA (12:33)
[2023-07-16] MEDS: PROPARACAINE 0.5% OPHTH DROPS 15 ML BTL RIGHT EYE STA (12:34)
[2023-07-16] MEDS: FLUORESCEIN STRIPS 1 MG STRIP RIGHT EYE ONE (12:34)
== END 2023-07-16 12:35 | disposition home or self-care (01) ==
LOC: EC 11:52
DX: H00.11 Chalazion right upper eyelid (principal); Z88.5 Allergy status to narcotic agent; Z88.8 Allergy status to other drugs, medicaments and biological substances
CPT/HCPCS: 99283

== ENCOUNTER 2023-12-04 23:18 | Emergency (ER) | payer OTHER ==
[2023-12-04 23:25] VITALS: RESP 18
--- NOTE | 2023-12-04 23:29 | ED ---
General Adult HPI - General Chief complaint: Upper Respiratory Infection Stated complaint: Headache, fever Time Seen by Provider: 12/04/23 23:29 Source: patient, RN notes reviewed Mode of arrival: ambulatory Limitations: no limitations - History of Present Illness Initial comments: 33-year-old male presents emergency department chief complaint of fever that developed today. Patient is also been experiencing bodyaches, fatigue, dry cough. Patient states that he is also been feeling nauseous during the send 1 episode of emesis. Denies hematemesis and coffee-ground emesis. Patient has not taken Tylenol or Motrin today. denies chest pain, shortness of breath, difficulty breathing. He has had a mild runny nose. No other acute complaints at this time. - Related Data Previous Rx's Medication Instructions Recorded Folic Acid 1 mg PO DAILY@1200 #30 tab 01/31/22 Multivitamins, Thera [Multivitamin 1 each PO DAILY@1200 #30 tab 01/31/22 (formulary)] Pantoprazole [Protonix] 40 mg PO AC-BRKFST #30 tab 01/31/22 Sertraline [Zoloft] 50 mg PO DAILY #30 tab 01/31/22 Thiamine [Vitamin B-1] 100 mg PO DAILY #30 tab 01/31/22 Allergies Allergy/AdvReac Type Severity Reaction Status Date / Time hydrocodone [From Vicodin] AdvReac Hallucinati Verified 07/16/23 11:58 ons Review of Systems ROS Statement: Those systems with pertinent positive or pertinent negative responses have been documented in the HPI. ROS Other: All systems not noted in ROS Statement are negative. Past Medical History Past Medical History: No Reported History History of Any Multi-Drug Resistant Organisms: None Reported Past Surgical History: No Surgical Hx Reported Past Psychological History: No Psychological Hx Reported Smoking Status: Never smoker Past Alcohol Use History: Occasional Past Drug Use History: None Reported General Exam Limitations: no limitations General appearance: alert, in no apparent distress Head exam: Present: atraumatic, normocephalic, normal inspection Eye exam: Present: normal appearance, PERRL, EOMI. Absent: scleral icterus, conjunctival injection, periorbital swelling ENT exam: Present: normal exam, mucous membranes moist Neck exam: Present: normal inspection. Absent: tenderness, meningismus, lymphadenopathy Respiratory exam: Present: normal lung sounds bilaterally. Absent: respiratory distress, wheezes, rales, rhonchi, stridor Cardiovascular Exam: Present: regular rate, normal rhythm, normal heart sounds. Absent: systolic murmur, diastolic murmur, rubs, gallop, clicks GI/Abdominal exam: Present: soft, normal bowel sounds. Absent: distended, tenderness, guarding, rebound, rigid Extremities exam: Present: normal inspection, full ROM, normal capillary refill. Absent: tenderness, pedal edema, joint swelling, calf tenderness Back exam: Present: normal inspection Neurological exam: Present: alert, oriented X3, CN II-XII intact Skin exam: Present: warm, dry, intact, normal color. Absent: rash Course Vital Signs 12/04/23 12/05/23 12/05/23 23:23 00:43 01:20 Temperature 103.3 F H 101.4 F H 97.8 F Pulse Rate 73 67 Respiratory 18 18 Rate Blood Pressure 121/69 114/71 O2 Sat by Pulse 98 97 Oximetry Medical Decision Making - Medical Decision Making Was pt. sent in by a medical professional or institution ([facility], [facility], urgent care, hospital, or care home...) When possible be specific @ -No Did you speak to anyone other than the patient for history (EMS, parent, family, police, friend...)? What history was obtained from this source @ -No Did you review nursing and triage notes (agree or disagree)? Why? @ -I reviewed and agree with nursing and triage notes Were old charts reviewed (outside hosp., previous admission, EMS record, old EKG, old radiological studies, urgent care reports/EKG's, care home records)? Report findings @ -No old charts were reviewed Differential Diagnosis (chest pain, altered mental status, abdominal pain women, abdominal pain men, vaginal bleeding, weakness, fever, dyspnea, syncope, headache, dizziness, GI bleed, back pain, seizure, CVA, palpatations, mental health, musculoskeletal)? @ -COVID 19, RSV, influenza, pneumonia, acute bronchitis, URI, this list is not all inclusive EKG interpreted by me (3pts min.). @ -none X-rays interpreted by me (1pt min.). @ -Chest x-ray no acute cardiopulmonary process or disease CT interpreted by me (1pt min.). @ -None done U/S interpreted by me (1pt. min.). @ -None done What testing was considered but not performed or refused? (CT, X-rays, U/S, labs)? Why? @ -None What meds were considered but not given or refused? Why? @ -None Did you discuss the management of the patient with other professionals (professionals i.e. , PA, [employer]RE RO[employer]ER, lab, RT, psych nurse, social service coordinator, information technology security analyst, teacher, flight deck officer, case management associate)? Give summary @ -No Was smoking cessation discussed for >3mins.? @ -No Was critical care preformed (if so, how long)? @ -No Were there social determinants of health that impacted care today? How? (H omelessness, low income, unemployed, alcoholism, drug addiction, transportation, low edu. Level, literacy, decrease access to med. care, penitentiary, rehab)? @ -No Was there de-escalation of care discussed even if they declined (Discuss DNR or withdrawal of care, Hospice)? DNR status @ -No What co-morbidities impacted this encounter? (DM, HTN, Smoking, COPD, CAD, Cancer, CVA, ARF, Chemo, Hep., AIDS, mental health diagnosis, sleep apnea, morbid obesity)? @ -None Was patient admitted / discharged? Hospital course, mention meds given and route, prescriptions, significant lab abnormalities, going to OR and other pertinent info. @ -Discharged. 33-year-old male with fever. On presentation patient was noted to be febrile with a temperature 103.3 and mildly tachycardic provided with Tylenol and ibuprofen in addition to Zofran with complaints of nausea. Examination and cardiopulmonary with no acute findings. Patient's chest x-ray no acute cardiopulmonary process or disease. Patient is positive for COVID. Evaluation, patient's temperature has decreased however still elevated at 101, nausea has subsided. Recommend symptomatic treatment at home. Provided discharge back with Zofran to take as needed over the next 2 days for intermittently for nausea. Increase oral rehydration. All questions answered at bedside and strict return parameters as the patient has been is understanding. Discussed with Dr. Ruvalcaba. Undiagnosed new problem with uncertain prognosis? @ -No Drug Therapy requiring intensive monitoring for toxicity (Heparin, Nitro, Insulin, Cardizem)? @ -No Were any procedures done? @ -No Diagnosis/symptom? @ -covid19 Acute, or Chronic, or Acute on Chronic? @ -Acute Uncomplicated (without systemic symptoms) or Complicated (systemic symptoms)? @ -uncomplicated Side effects of treatment? @ -No Exacerbation, Progression, or Severe Exacerbation? @ -No Poses a threat to life or bodily function? How? (Chest pain, [place], [place], pneumonia, PE, COPD, DKA, ARF, appy, cholecystitis, CVA, Diverticulitis, Homicidal, Suicidal, threat to staff... and all critical care pts) @ -No - Lab Data Lab Results 12/04/23 Range/Units 23:38 Influenza Type A (PCR) Not Detected (Not Detectd) Influenza Type B (PCR) Not Detected (Not Detectd) RSV (PCR) Not Detected (Not Detectd) SARS-CoV-2 (PCR) Detected A (Not Detectd) Disposition Clinical Impression: COVID-19, Fever Disposition: HOME SELF-CARE Condition: Good Instructions (If sedation given, give patient instructions): COVID-19 (Coronavirus Disease 2019) (ED) Additional Instructions: Return to the emergency department for any new or worsening symptoms. Continue to cycle Tylenol Motrin at home for symptomatic relief. Increase fluid hydration. Is patient prescribed a controlled substance at d/c from ED?: No Referrals: Maricel Cole DO [Primary Care Provider] - 1-2 days Time of Disposition: 00:45
[2023-12-04] MEDS: ACETAMINOPHEN TAB 500 MG TAB PO STA (23:38)
[2023-12-04] MEDS: IBUPROFEN 800 MG TAB PO STA (23:38)
[2023-12-05] MEDS: ONDANSETRON 4 MG ODT STARTER PACK 2 TAB BTL PO STA (01:21)
[2023-12-05 01:26] VITALS: BP 114/71; PULSE 67; TEMP 97.8
== END 2023-12-05 01:20 | disposition home or self-care (01) ==
LOC: EC 23:18
CPT/HCPCS: 71046; 87636; 99284

== ENCOUNTER 2024-04-26 14:39 | Emergency (ER) | payer OTHER ==
--- NOTE | 2024-04-26 14:56 | ED ---
Nausea/Vomiting/Diarrhea HPI - General Source: patient, RN notes reviewed Mode of arrival: ambulatory Limitations: no limitations - History of Present Illness MD complaint: nausea, vomiting <Luan Tolliver - Last Filed: 04/26/24 19:26> <Jose Cole - Last Filed: 04/26/24 19:34> - General Stated complaint: vomiting Time Seen by Provider: 04/26/24 14:51 - History of Present Illness Initial comments: Quick note: This is a 34-year-old male presenting with nausea/vomiting x 5 days. Also endorses associated constant abdominal pain (6/), sweating, fatigue, chills. States pain worsens after eating with subsequent vomiting and inability to hold down food. States his last bowel movement was yesterday and that he is still having flatus. (Luan Tolliver) - Related Data Previous Rx's Medication Instructions Recorded Folic Acid 1 mg PO DAILY@1200 #30 tab 01/31/22 Multivitamins, Thera [Multivitamin 1 each PO DAILY@1200 #30 tab 01/31/22 (formulary)] Pantoprazole [Protonix] 40 mg PO AC-BRKFST #30 tab 01/31/22 Sertraline [Zoloft] 50 mg PO DAILY #30 tab 01/31/22 Thiamine [Vitamin B-1] 100 mg PO DAILY #30 tab 01/31/22 Allergies Allergy/AdvReac Type Severity Reaction Status Date / Time hydrocodone [From Vicodin] AdvReac Hallucinati Verified 04/26/24 14:51 ons Review of Systems ROS Other: All systems not noted in ROS Statement are negative. <Luan Tolliver - Last Filed: 04/26/24 19:26> ROS Other: All systems not noted in ROS Statement are negative. <Jose Cole - Last Filed: 04/26/24 19:34> ROS Statement: Those systems with pertinent positive or pertinent negative responses have been documented in the HPI. Past Medical History Past Medical History: No Reported History History of Any Multi-Drug Resistant Organisms: None Reported Past Surgical History: No Surgical Hx Reported Past Psychological History: No Psychological Hx Reported Smoking Status: Never smoker Past Alcohol Use History: Occasional Past Drug Use History: None Reported <Luan Tolliver - Last Filed: 04/26/24 19:26> General Exam Limitations: no limitations <Luan Tolliver - Last Filed: 04/26/24 19:26> - General Exam Comments Initial Comments: Visual Physical Exam Vital signs reviewed General: Well-appearing, nontoxic, no acute distress. Head: Normocephalic, atraumatic Eyes: PERRLA, EOMI ENT: Airway patent Chest: Nonlabored breathing Skin: No visual rash, normal skin tone Neuro: Alert and oriented 3 Musculoskeletal: No gross abnormalities (Luan Tolliver) Course Vital Signs 04/26/24 04/26/24 14:49 18:17 Temperature 98.2 F 99.1 F Pulse Rate 97 67 Respiratory 17 16 Rate Blood Pressure 126/90 125/83 O2 Sat by Pulse 98 99 Oximetry Medical Decision Making <Luan Tolliver - Last Filed: 04/26/24 19:26> - Lab Data Result diagrams: 04/26/24 15:41 04/26/24 15:41 <Jose Cole - Last Filed: 04/26/24 19:34> - Medical Decision Making I completed the quick note portion of this chart signed SVETLANA Pollack (Luna Tolliver) Patient seen for nausea and vomiting and dehydration. Laboratory studies and CT imaging unremarkable except for mild hyperkalemia with a potassium of 5.2. Initial lactic acid is 8.7 however after discussion with patient, as well as midlevel provider, we question the accuracy of this. Repeat was obtained after 2 L fluid bolus and is 1.2. Initial lactic acid is likely a lab error. Workup unremarkable. Patient tolerating p.o. intake and has no symptoms. He will be discharged home at this time. (Jose Cole) - Lab Data Lab Results 04/26/24 04/26/24 04/26/24 Range/Units 15:41 15:41 15:41 WBC 6.8 (3.8-10.6) k/uL RBC 5.66 (4.30-5.90) m/uL Hgb 16.8 (13.0-17.5) gm/dL Hct 48.6 (39.0-53.0) % MCV 85.8 (80.0-100.0) fL MCH 29.8 (25.0-35.0) pg MCHC 34.7 (31.0-37.0) g/dL RDW 13.4 (11.5-15.5) % Plt Count 202 (150-450) k/uL MPV 6.5 Neutrophils % 71 % Lymphocytes % 19 % Monocytes % 6 % Eosinophils % 2 % Basophils % 1 % Neutrophils # 4.8 (1.3-7.7) k/uL Lymphocytes # 1.3 (1.0-4.8) k/uL Monocytes # 0.4 (0-1.0) k/uL Eosinophils # 0.1 (0-0.7) k/uL Basophils # 0.0 (0-0.2) k/uL Sodium 143 (137-145) mmol/L Potassium 5.2 H (3.5-5.1) mmol/L Chloride 98 (98-107) mmol/L Carbon Dioxide 31 H (22-30) mmol/L Anion Gap 14 mmol/L BUN 10 (9-20) mg/dL Creatinine 1.01 (0.66-1.25) mg/dL Est GFR (CKD-EPI)AfAm >90 (>60 ml/min/1.73 sqM) Est GFR (CKD-EPI)NonAf >90 (>60 ml/min/1.73 sqM) Glucose 137 H (74-99) mg/dL Lactic Ac Sepsis Rflx Plasma Lactic Acid Ángel 8.7 H* (0.7-2.0) mmol/L Calcium 11.5 H (8.4-10.2) mg/dL Total Bilirubin 1.6 H (0.2-1.3) mg/dL AST 68 H (17-59) U/L ALT 45 (4-49) U/L Alkaline Phosphatase 69 (38-126) U/L Total Protein 9.0 H (6.3-8.2) g/dL Albumin 5.6 H (3.5-5.0) g/dL Amylase 75 (30-110) U/L Lipase 151 (23-300) U/L Urine Color Urine Appearance (Clear) Urine pH (5.0-8.0) Ur Specific [place] (1.001-1.035) Urine Protein (Negative) Urine Glucose (UA) (Negative) Urine Ketones (Negative) Urine Blood (Negative) Urine Nitrite (Negative) Urine Bilirubin (Negative) Urine Urobilinogen (<2.0) mg/dL Ur Leukocyte Esterase (Negative) Serum Alcohol mg/dL Influenza Type A (PCR) (Not Detectd) Influenza Type B (PCR) (Not Detectd) RSV (PCR) (Not Detectd) SARS-CoV-2 (PCR) (Not Detectd) 04/26/24 04/26/24 04/26/24 Range/Units 15:41 16:35 17:59 WBC (3.8-10.6) k/uL RBC (4.30-5.90) m/uL Hgb (13.0-17.5) gm/dL Hct (39.0-53.0) % MCV (80.0-100.0) fL MCH (25.0-35.0) pg MCHC (31.0-37.0) g/dL RDW (11.5-15.5) % Plt Count (150-450) k/uL MPV Neutrophils % % Lymphocytes % % Monocytes % % Eosinophils % % Basophils % % Neutrophils # (1.3-7.7) k/uL Lymphocytes # (1.0-4.8) k/uL Monocytes # (0-1.0) k/uL Eosinophils # (0-0.7) k/uL Basophils # (0-0.2) k/uL Sodium (137-145) mmol/L Potassium (3.5-5.1) mmol/L Chloride (98-107) mmol/L Carbon Dioxide (22-30) mmol/L Anion Gap mmol/L BUN (9-20) mg/dL Creatinine (0.66-1.25) mg/dL Est GFR (CKD-EPI)AfAm (>60 ml/min/1.73 sqM) Est GFR (CKD-EPI)NonAf (>60 ml/min/1.73 sqM) Glucose (74-99) mg/dL Lactic Ac Sepsis Rflx Y Plasma Lactic Acid Ángel 1.2 (0.7-2.0) mmol/L Calcium (8.4-10.2) mg/dL Total Bilirubin (0.2-1.3) mg/dL AST (17-59) U/L ALT (4-49) U/L Alkaline Phosphatase (38-126) U/L Total Protein (6.3-8.2) g/dL Albumin (3.5-5.0) g/dL Amylase (30-110) U/L Lipase (23-300) U/L Urine Color Urine Appearance (Clear) Urine pH (5.0-8.0) Ur Specific [place] (1.001-1.035) Urine Protein (Negative) Urine Glucose (UA) (Negative) Urine Ketones (Negative) Urine Blood (Negative) Urine Nitrite (Negative) Urine Bilirubin (Negative) Urine Urobilinogen (<2.0) mg/dL Ur Leukocyte Esterase (Negative) Serum Alcohol mg/dL Influenza Type A (PCR) Not Detected (Not Detectd) Influenza Type B (PCR) Not Detected (Not Detectd) RSV (PCR) Not Detected (Not Detectd) SARS-CoV-2 (PCR) Not Detected (Not Detectd) 04/26/24 04/26/24 Range/Units 17:59 19:05 WBC (3.8-10.6) k/uL RBC (4.30-5.90) m/uL Hgb (13.0-17.5) gm/dL Hct (39.0-53.0) % MCV (80.0-100.0) fL MCH (25.0-35.0) pg MCHC (31.0-37.0) g/dL RDW (11.5-15.5) % Plt Count (150-450) k/uL MPV Neutrophils % % Lymphocytes % % Monocytes % % Eosinophils % % Basophils % % Neutrophils # (1.3-7.7) k/uL Lymphocytes # (1.0-4.8) k/uL Monocytes # (0-1.0) k/uL Eosinophils # (0-0.7) k/uL Basophils # (0-0.2) k/uL Sodium (137-145) mmol/L Potassium (3.5-5.1) mmol/L Chloride (98-107) mmol/L Carbon Dioxide (22-30) mmol/L Anion Gap mmol/L BUN (9-20) mg/dL Creatinine (0.66-1.25) mg/dL Est GFR (CKD-EPI)AfAm (>60 ml/min/1.73 sqM) Est GFR (CKD-EPI)NonAf (>60 ml/min/1.73 sqM) Glucose (74-99) mg/dL Lactic Ac Sepsis Rflx Plasma Lactic Acid Á[place] (0.7-2.0) mmol/L Calcium (8.4-10.2) mg/dL Total Bilirubin (0.2-1.3) mg/dL AST (17-59) U/L ALT (4-49) U/L Alkaline Phosphatase (38-126) U/L Total Protein (6.3-8.2) g/dL Albumin (3.5-5.0) g/dL Amylase (30-110) U/L Lipase (23-300) U/L Urine Color Light Yellow Urine Appearance Clear (Clear) Urine pH 7.0 (5.0-8.0) Ur Specific [place] >1.050 H (1.001-1.035) Urine Protein Negative (Negative) Urine Glucose (UA) Negative (Negative) Urine Ketones Negative (Negative) Urine Blood Negative (Negative) Urine Nitrite Negative (Negative) Urine Bilirubin Negative (Negative) Urine Urobilinogen <2.0 (<2.0) mg/dL Ur Leukocyte Esterase Negative (Negative) Serum Alcohol <10 mg/dL Influenza Type A (PCR) (Not Detectd) Influenza Type B (PCR) (Not Detectd) RSV (PCR) (Not Detectd) SARS-CoV-2 (PCR) (Not Detectd) Disposition <Luan Tolliver - Last Filed: 04/26/24 19:26> Is patient prescribed a controlled substance at d/c from ED?: No Time of Disposition: 19:30 <Jose Cole - Last Filed: 04/26/24 19:34> Clinical Impression: Nausea and vomiting, Dehydration Disposition: HOME SELF-CARE Condition: Good Instructions (If sedation given, give patient instructions): Acute Nausea and Vomiting (ED) Referrals: Maricel Cole DO [Primary Care Provider] - 1-2 days
[2024-04-26] MEDS: SODIUM CHLORIDE 0.9% 1,000 ML IV STA ×3 (15:33→17:54)
[2024-04-26] MEDS: ONDANSETRON 4 MG/2 ML VIAL IVP STA (15:42)
[2024-04-26 15:56] LABS: Basophils % (A) 1 %; Eosinophils # (A) 0.1 k/uL (0-0.7); Eosinophils % (A) 2 %; HCT 48.6 % (39.0-53.0); HGB 16.8 gm/dL (13.0-17.5); Lymphocytes # (A) 1.3 k/uL (1.0-4.8); Lymphocytes % (A) 19 %; MCH 29.8 pg (25.0-35.0); MCHC 34.7 g/dL (31.0-37.0); MCV 85.8 fL (80.0-100.0); Mean Platelet Volume 6.5; Monocytes # (A) 0.4 k/uL (0-1.0); Monocytes % (A) 6 %; Neutrophils # (A) 4.8 k/uL (1.3-7.7); Neutrophils % (A) 71 %; Platelet Count 202 k/uL (150-450); RBC 5.66 m/uL (4.30-5.90); RDW 13.4 % (11.5-15.5); WBC 6.8 k/uL (3.8-10.6)
[2024-04-26 16:17] LABS: ALT 45 U/L (4-49); AST 68 U/L (17-59); African American GFR (CKD) >90 (>60 ml/min/1.73 sqM); Albumin 5.6 g/dL (3.5-5.0); Alkaline Phosphatase 69 U/L (38-126); Amylase 75 U/L (30-110); Anion Gap 14 mmol/L; Blood Urea Nitrogen 10 mg/dL (9-20); Calcium 11.5 mg/dL (8.4-10.2); Carbon Dioxide 31 mmol/L (22-30); Chloride 98 mmol/L (98-107); Glucose 137 mg/dL (74-99); Lipase 151 U/L (23-300); Non-African American GFR(CKD) >90 (>60 ml/min/1.73 sqM); Potassium 5.2 mmol/L (3.5-5.1); Sodium 143 mmol/L (137-145); Total Bilirubin 1.6 mg/dL (0.2-1.3)
[2024-04-26 16:32] LABS: Influenza A Not Detected (Not Detectd); Influenza B Not Detected (Not Detectd); RSV Not Detected (Not Detectd)
--- NOTE | 2024-04-26 17:18 | CT ---
EXAMINATION TYPE: CT abdomen pelvis w con DATE OF EXAM: 04/26/2024 5:05 PM COMPARISON: 01/29/2022 CLINICAL INDICATION: Male, 34 years old with history of Abdominal pain, Abdominal pain with nausea x 4 days. TECHNIQUE: Axial images were obtained from above the diaphragm to the pubic rami in the axial plane a t 5 mm thick sections. Reconstructed images are reviewed on the computer in the coronal plane. CONTRAST: 100 mL of Isovue 300. Study performed without Oral Contrast DLP: 572.8 mGycm, Automated exposure control for dose reduction was used. FINDINGS: Limited CT sections are obtained the lung bases. The lung bases are clear. CT ABDOMEN: Liver: Mild fatty infiltration of liver is present. Spleen: Normal Pancreas: Normal Adrenal glands: The adrenal glands are normal. Gallbladder: Normal Kidneys: No masses are evident. No hydronephrosis is present. No cysts are present. Delayed images were obtained through the kidneys, which remain unremarkable. Aorta: Normal Inferior vena cava: Normal. CT PELVIS: Loops of bowel within the abdomen and pelvis are normal. Study is without oral contrast limiting evaluation. Appendix: Normal as visualized. Urinary bladder: Normal. Genitourinary structures: Prostate is normal Osseous structures: No suspicious lytic or sclerotic lesions. IMPRESSION: 1. No acute abnormality to account for nausea. 2. Mild fatty infiltration of liver [facility] Vivek Vásquez, , 04/26/2024 5:16 PM
[2024-04-26 18:19] VITALS: RESP 16
[2024-04-26 19:22] LABS: Appearance,Urine Clear (Clear); Bilirubin,Urine Negative (Negative); Blood,Urine Negative (Negative); Color,Urine Light Yellow; Glucose,Urine (UA) Negative (Negative); Ketones,Urine Negative (Negative); Leukocyte Esterase,Urine Negative (Negative); Nitrite,Urine Negative (Negative); Protein,Urine Negative (Negative); Urobilinogen,Urine <2.0 mg/dL (<2.0)
[2024-04-26 19:26] LABS: Specific Gravity,Urine >1.050 (1.001-1.035)
[2024-04-26] MEDS: ONDANSETRON 4 MG ODT STARTER PACK 2 TAB BTL PO STA (19:42)
[2024-04-26 19:47] VITALS: BP 122/80; PULSE 69; TEMP 98.8
== END 2024-04-26 19:47 | disposition home or self-care (01) ==
LOC: EC 14:39
DX: E86.0 Dehydration (principal); R11.2 Nausea with vomiting, unspecified; Z88.5 Allergy status to narcotic agent; Z11.52 Encounter for screening for COVID-19
CPT/HCPCS: 36415; 80053; 82150; 83605; 83690; 85025; 81003; 80320; 87636; 74177; 99284; 96374; 96361; J2405; S0119; Q9967